=== PATIENT | male | born 1980 | race Caucasian/White ===

== ENCOUNTER → 2017-02-09 | Outpatient (CLI) | payer OTHER ==
[~2017-02-09] MED LIST: APIDRA100 UNIT/1 SQ; ASPIRIN325 MG PO; BAYER CHEWABLE81 MG PO; CLINDAMYCIN HC300 MG PO; GLUCOTROL XL 5 M5 MG PO; HUMALOG MI100 UNIT/3 SQ; HUMALOG MI100 UNIT/4 SQ; HYDROCHLOROTHIA25 MG PO; IBUPROFEN800 MG PO; LEVAQUIN500 MG PO; LIPITOR TAB 2020 MG PO; LISINOPRIL10 MG PO; NEURONTIN 400400 MG PO; PERCOCET 10-321 EACH PO; RANITIDINE HCL300 MG PO; VITAMIN C 500500 MG PO; VITAMIN D250000 UNIT PO
== END ==
LOC: KOH-I 11:57
DX: M14.671 Charcot's joint, right ankle and foot (principal)
CPT/HCPCS: 73718

== ENCOUNTER → 2017-04-01 | Outpatient (CLI) | payer OTHER ==
[2017-04-01 12:05] LABS: RED BLOOD COUNT 4.72 M/UL (4.20-5.50); WHITE BLOOD COUNT 8.4 K/UL (4.5-11.0)
[2017-04-01 12:20] LABS: BUN/CREATININE RATIO 28 (0-10)
== END ==
LOC: OPSV2 03-31 11:00
PROVIDERS: Podiatrist Foot & Ankle Surgery
DX: Z01.812 Encounter for preprocedural laboratory examination (principal); E11.610 Type 2 diabetes mellitus with diabetic neuropathic arthropathy; Z79.4 Long term (current) use of insulin
CPT/HCPCS: 36415; 80048; 83036; 85027

== ENCOUNTER 2017-04-07 07:17 | Day surgery (SDC) | payer OTHER ==
[~2017-04-07] VITALS: Ht 172.7 cm; Wt 140.6 kg
[2017-04-07] MEDS ORDERED: HUMALOG MI100 UNIT/3 SQ (08:51)
[2017-04-07] MEDS ORDERED: HUMALOG MI100 UNIT/4 SQ (08:51)
[2017-04-07] MEDS ORDERED: BAYER CHEWABLE81 MG PO (08:52)
[2017-04-07] MEDS ORDERED: APIDRA100 UNIT/1 SQ (08:52)
[2017-04-07] MEDS ORDERED: HYDROCHLOROTHIA25 MG PO (08:53)
[2017-04-07] MEDS ORDERED: LIPITOR TAB 2020 MG PO (08:53)
[2017-04-07] MEDS ORDERED: GLUCOTROL XL 5 M5 MG PO (08:53)
[2017-04-07] MEDS ORDERED: LISINOPRIL10 MG PO (08:54)
[2017-04-07] MEDS ORDERED: RANITIDINE HCL300 MG PO (08:54)
[2017-04-07] MEDS ORDERED: NEURONTIN 400400 MG PO (08:55)
[2017-04-08 06:09] LABS: RED BLOOD COUNT 4.07 M/UL (4.20-5.50)
[2017-04-09] MEDS ORDERED: ASPIRIN325 MG PO (19:06)
[2017-04-09] MEDS ORDERED: CLINDAMYCIN HC300 MG PO (19:07)
[2017-04-09] MEDS ORDERED: PERCOCET 10-321 EACH PO (19:08)
[2017-04-09] MEDS ORDERED: LEVAQUIN500 MG PO (19:09)
[2017-04-09] MEDS ORDERED: VITAMIN C 500500 MG PO (19:13)
[2017-04-09] MEDS ORDERED: IBUPROFEN800 MG PO (19:13)
[2017-04-09] MEDS ORDERED: VITAMIN D250000 UNIT PO (19:59)
== END 2017-04-09 20:15 | disposition home or self-care (01) ==
LOC: OR 07:17 → M/S 14:45 → OR 04-09 20:15
PROVIDERS: Podiatrist Foot & Ankle Surgery
PROC: 0SGH04Z Fusion of Right Tarsal Joint with Internal Fixation Device, Open Approach (ICD-10-PCS; 2017-04-07)
PROC: 0SGH04Z Fusion of Right Tarsal Joint with Internal Fixation Device, Open Approach (ICD-10-PCS; 2017-04-07)
PROC: 0SGH04Z Fusion of Right Tarsal Joint with Internal Fixation Device, Open Approach (ICD-10-PCS; 2017-04-07)
PROC: 0QBL0ZZ Excision of Right Tarsal, Open Approach (ICD-10-PCS; 2017-04-07)
PROC: 0HXMXZZ Transfer Right Foot Skin, External Approach (ICD-10-PCS; 2017-04-07)
PROC: 0L8N3ZZ Division of Right Lower Leg Tendon, Percutaneous Approach (ICD-10-PCS; principal; 2017-04-07 11:00)
DX: E11.610 Type 2 diabetes mellitus with diabetic neuropathic arthropathy (principal); E11.65 Type 2 diabetes mellitus with hyperglycemia; E11.69 Type 2 diabetes mellitus with other specified complication; M86.671 Other chronic osteomyelitis, right ankle and foot; M62.89 Other specified disorders of muscle; S93.304A Unspecified dislocation of right foot, initial encounter; K21.9 Gastro-esophageal reflux disease without esophagitis; G47.33 Obstructive sleep apnea (adult) (pediatric); F32.9 Major depressive disorder, single episode, unspecified; E66.9 Obesity, unspecified; Z68.42 Body mass index [BMI] 45.0-49.9, adult; Z87.891 Personal history of nicotine dependence; Z82.49 Family history of ischemic heart disease and other diseases of the circulatory system; Z82.5 Family history of asthma and other chronic lower respiratory diseases; Z79.82 Long term (current) use of aspirin; Z79.899 Other long term (current) drug therapy; Z98.890 Other specified postprocedural states
CPT/HCPCS: 36415; 73630; 76000; 82962; 85027; 87070; 87077; 87186; 87205; C1713; J0690; J1580; J1815; J2250; J2270; J2710; J2795; J3010; J3370; J7030; J7120

== ENCOUNTER 2017-04-26 13:07 | Inpatient (IN) | payer OTHER ==
[~2017-04-26] VITALS: Ht 172.7 cm; Wt 140.6 kg
[2017-04-26 20:09] LABS: HEMOGLOBIN 11.2 gm/dl (14.0-17.5); RED BLOOD COUNT 4.22 M/UL (4.20-5.50); WHITE BLOOD COUNT 8.2 K/UL (4.5-11.0)
[2017-04-26 20:23] LABS: BUN/CREATININE RATIO 37 (0-10)
[2017-04-27 05:37] LABS: HEMOGLOBIN 10.4 gm/dl (14.0-17.5); RED BLOOD COUNT 3.94 M/UL (4.20-5.50); WHITE BLOOD COUNT 7.2 K/UL (4.5-11.0)
[2017-04-27 05:59] LABS: BUN/CREATININE RATIO 48 (0-10)
[2017-04-28 05:32] LABS: BUN/CREATININE RATIO 28 (0-10)
[2017-04-29 05:22] LABS: BUN/CREATININE RATIO 26 (0-10)
[2017-05-01 11:09] LABS: BUN/CREATININE RATIO 22 (0-10)
[2017-05-03 05:59] LABS: HEMOGLOBIN 9.9 gm/dl (14.0-17.5); RED BLOOD COUNT 3.72 M/UL (4.20-5.50); WHITE BLOOD COUNT 9.3 K/UL (4.5-11.0)
[2017-05-03 06:11] LABS: BUN/CREATININE RATIO 26 (0-10)
== END 2017-05-03 15:45 | disposition other institution (70) | DRG 464 ==
LOC: M/S 16:36
PROVIDERS: ADMIT Internal Medicine
PROC: 05HC33Z Insertion of Infusion Device into Left Basilic Vein, Percutaneous Approach (ICD-10-PCS; principal; 2017-04-27)
PROC: B54NZZA Ultrasonography of Left Upper Extremity Veins, Guidance (ICD-10-PCS; principal; 2017-04-27)
PROC: 0JBQ0ZZ Excision of Right Foot Subcutaneous Tissue and Fascia, Open Approach (ICD-10-PCS; 2017-04-27)
PROC: 0JDQ0ZZ Extraction of Right Foot Subcutaneous Tissue and Fascia, Open Approach (ICD-10-PCS; 2017-04-27)
PROC: 0QPL04Z Removal of Internal Fixation Device from Right Tarsal, Open Approach (ICD-10-PCS; 2017-04-27)
DX: T84.69XA Infection and inflammatory reaction due to internal fixation device of other site, initial encounter (principal); T81.4XXA Infection following a procedure, initial encounter; L02.611 Cutaneous abscess of right foot; Z68.42 Body mass index [BMI] 45.0-49.9, adult; L03.115 Cellulitis of right lower limb; I96 Gangrene, not elsewhere classified; M86.9 Osteomyelitis, unspecified; E11.621 Type 2 diabetes mellitus with foot ulcer; E11.610 Type 2 diabetes mellitus with diabetic neuropathic arthropathy; E66.01 Morbid (severe) obesity due to excess calories; K21.9 Gastro-esophageal reflux disease without esophagitis; E78.5 Hyperlipidemia, unspecified; Z87.891 Personal history of nicotine dependence; Z79.82 Long term (current) use of aspirin; Z79.84 Long term (current) use of oral hypoglycemic drugs; Z79.1 Long term (current) use of non-steroidal anti-inflammatories (NSAID); Z79.4 Long term (current) use of insulin; Z79.891 Long term (current) use of opiate analgesic; Z79.899 Other long term (current) drug therapy
CPT/HCPCS: 36415; 73630; 80048; 80053; 80061; 80202; 81001; 82962; 83036; 83735; 84100; 85025; 85027; 86140; 87070; 87205; C1713; J1650; J1885; J2250; J2270; J2795; J3010; J3370; J7030; J7070; J7120